=== PATIENT | female | born 1985 | race Caucasian/White ===

== ENCOUNTER → 2017-11-24 | Outpatient (CLI) | payer SELFPAY ==
--- NOTE | 2017-11-24 15:32 | RADIOLOGY REPORT (SQ) ---
EXAM DESCRIPTION: U/S OB TRANSVAGINAL W/O DOP COMPLETED DATE/TIME: 11/24/2017 2:56 pm REASON FOR STUDY: ENCTR FOR SUPERVISION OF OTHER NORMAL , FIRST TRIMESTER (Z34.81) Z34.81 ENCOUNTER FOR SUPRVSN OF NORMAL , FIRST TRIM COMPARISON: None. TECHNIQUE: Transabdominal static and realtime grayscale images acquired of the pelvis. Additional se lected spectral and color Doppler images recorded. All images stored on PACs. bHCG: Not applicable. CLINICAL DATES: 8 week 3 day. LIMITATIONS: None. FINDINGS: FETUS: Living intrauterine . ULTRASOUND EGA: 7 week 2 day. ULTRASOUND ELENA: 07/11/2018. CRL: 1.18 cm. FHR: 137 beats per minute. SUBCHORIONIC BLEED: No. SIZE OF BLEED: Not applicable. UTERUS: No masses. No anomalies. CERVICAL LENGTH: 1.7 cm. Closed. RIGHT ADNEXA: Normal ovary with normal vascular flow. No adnexal free fluid. No adnexal masses. LEFT ADNEXA: Normal ovary with normal vascular flow. No adnexal free fluid. No adnexal masses. FREE FLUID: None. OTHER: No other significant finding. IMPRESSION: LIVING INTRAUTERINE . EGA 7 WEEK 2 DAY. Trimester of : First - 0 to 13 weeks. TECHNICAL DOCUMENTATION: JOB ID: [id number] [employer]- All Rights Reserved Reading location - IP/workstation name: [email or web address]
== END ==
LOC: RAD 14:01
PROVIDERS: ATTEND Nurse Practitioner Women's Health
DX: Z34.81 Encounter for supervision of other normal pregnancy, first trimester (principal)
CPT/HCPCS: 76817

== ENCOUNTER 2018-04-22 15:46 | Emergency (ER) | payer MEDICAID ==
--- NOTE | 2018-04-22 16:23 | ER Document Report ---
ED Medical Screen (RME) - General Chief Complaint: Psych Problem Stated Complaint: PSYCH EVAL Time Seen by Provider: 04/22/18 16:21 Notes: Patient is 28 weeks and was at her local OB office today for a scheduled appointment when "she just lost it". She indicated to them that she was feeling depressed and they wrote her a prescription for Zoloft, but also told her to come here to be checked out. Patient says she feels like she "just cannot keep going". Patient has no previous history of mental health issues. No other significant medical problems. TRAVEL OUTSIDE OF THE [place] IN LAST 30 DAYS: No - Related Data Allergies/Adverse Reactions: No Known Allergies Allergy (Verified 04/22/18 15:56) Past Medical History - Social History Chew tobacco use (# tins/day): No Frequency of alcohol use: None Drug Abuse: None Renal/ Medical History: Denies: Hx Peritoneal Dialysis GI Medical History: Reports: Hx Hiatal Hernia Past Surgical History: Reports: Hx Breast Surgery - Cyst removal, Hx Gynecologic Surgery - D+C, Hx Herniorrhaphy - Umbilical hernia repair with mesh about 5 years ago. - Immunizations Hx Diphtheria, Pertussis, Tetanus Vaccination: No - >5 Physical Exam - Vital signs Vitals: Temp Pulse Resp BP Pulse Ox 98.3 F 90 16 111/59 L 98 04/22/18 16:09 04/22/18 16:09 04/22/18 16:09 04/22/18 16:09 04/22/18 16:09 Course - Vital Signs Vital signs: Temp Pulse Resp BP Pulse Ox 98.3 F 90 16 111/59 L 98 04/22/18 16:09 04/22/18 16:09 04/22/18 16:09 04/22/18 16:09 04/22/18 16:09 Doctor's Discharge - Discharge Referrals: RIVER TORRES NP [Primary Care Provider] - Follow up as needed
[2018-04-22 16:51] LABS: ABSOLUTE LYMPHOCYTES (AUTO) 1.8 10^3/uL (0.5-4.7); ABSOLUTE MONOCYTES (AUTO) 0.7 10^3/uL (0.1-1.4); ABSOLUTE NEUT (AUTO) 8.9 10^3/uL (1.7-8.2); BASOPHILS % (AUTO) 0.2 % (0-2); EOSINOPHILS % (AUTO) 0.3 % (0-6); HEMATOCRIT 34.4 % (36.0-47.0); LYMPHOCYTES % (AUTO) 15.5 % (13-45); MEAN CORPUSCULAR HEMOGLOBIN 32.4 pg (27.0-33.4); MEAN CORPUSCULAR VOLUME 93 fl (80-97); MONOCYTES % (AUTO) 6.2 % (3-13); PLATELET COUNT 315 10^3/uL (150-450); RED BLOOD COUNT 3.71 10^6/uL (3.72-5.28); RED CELL DISTRIBUTION WIDTH 13.2 % (11.5-14.0); SEGMENTED NEUTROPHILS % (AUTO) 77.8 % (42-78); TOTAL CELLS COUNTED % (AUTO) 100 %; WHITE BLOOD COUNT 11.5 10^3/uL (4.0-10.5)
[2018-04-22 17:03] LABS: APPEARANCE,URINE CLOUDY; BILIRUBIN,URINE NEGATIVE (NEGATIVE); COLOR,URINE YELLOW; GLUCOSE, URINE >=500 mg/dL (NEGATIVE); KETONES,URINE NEGATIVE (NEGATIVE); LEUKOCYTE ESTERASE,URINE NEGATIVE (NEGATIVE); NITRITE,URINE NEGATIVE (NEGATIVE); PROTEIN,URINE NEGATIVE (NEGATIVE); URINE SPECIFIC GRAVITY 1.016; UROBILINOGEN,URINE NEGATIVE mg/dL (<2.0)
[2018-04-22 17:12] LABS: URINE AMPHETAMINES SCREEN NEGATIVE; URINE BARBITURATES SCREEN NEGATIVE; URINE BENZODIAZEPINES SCREEN NEGATIVE; URINE COCAINE SCREEN NEGATIVE; URINE MARIJUANA (THC) SCREEN NEGATIVE; URINE METHADONE SCREEN NEGATIVE; URINE PHENCYCLIDINE SCREEN NEGATIVE
[2018-04-22 17:13] LABS: ALANINE AMINOTRANSFERASE 10 U/L (9-52); ALBUMIN 3.7 g/dL (3.5-5.0); ALKALINE PHOSPHATASE 72 U/L (38-126); ANION GAP 5 (5-19); ASPARTATE AMINO TRANSFERASE 14 U/L (14-36); BILIRUBIN,DIRECT 0.2 mg/dL (0.0-0.4); BILIRUBIN,TOTAL 0.3 mg/dL (0.2-1.3); BLOOD UREA NITROGEN 6 mg/dL (7-20); CALCIUM 9.8 mg/dL (8.4-10.2); CARBON DIOXIDE 27 mmol/L (22-30); CHLORIDE 106 mmol/L (98-107); GLUCOSE 80 mg/dL (75-110); POTASSIUM 4.1 mmol/L (3.6-5.0); SODIUM 137.7 mmol/L (137-145); TOTAL PROTEIN 6.5 g/dL (6.3-8.2)
[2018-04-22 17:15] LABS: ACETAMINOPHEN < 10 ug/mL (10-30); ALCOHOL < 10 mg/dL (NONE DETECTED); SALICYLATE < 1.0 mg/dL (2.0-20.0)
--- NOTE | 2018-04-22 18:05 | ER Document Report ---
ED General - General Chief Complaint: Psych Problem Stated Complaint: PSYCH EVAL Time Seen by Provider: 04/22/18 16:21 Mode of Arrival: Ambulatory Information source: Patient Notes: 32-year-old female who is 28 weeks presents from her [facility] after she expressed increasing depression, thoughts of suicide. Patient admits to increased stress with recently being evicted from her home and having no place to go with her 2 children and . Patient denies previous suicide attempts, previous depression. She states that "I am just tired". Patient was started on Zoloft today. TRAVEL OUTSIDE OF THE [place] IN LAST 30 DAYS: No - Related Data Allergies/Adverse Reactions: No Known Allergies Allergy (Verified 04/22/18 15:56) Past Medical History - General Information source: Patient - Social History Smoking Status: Current Every Day Smoker Cigarette use (# per day): Yes - 5 Chew tobacco use (# tins/day): No Smoking Education Provided: Yes - Smoking cessation counseling was provided for 4 minutes at the bedside Frequency of alcohol use: None Drug Abuse: None Lives with: Family Family History: Reviewed & Not Pertinent Patient has suicidal ideation: No Patient has homicidal ideation: No Renal/ Medical History: Denies: Hx Peritoneal Dialysis GI Medical History: Reports: Hx Hiatal Hernia Past Surgical History: Reports: Hx Breast Surgery - Cyst removal, Hx Gynecologic Surgery - D+C, Hx Herniorrhaphy - Umbilical hernia repair with mesh about 5 years ago. - Immunizations Hx Diphtheria, Pertussis, Tetanus Vaccination: No - >5 Hx Pneumococcal Vaccination: 04/26/00 Review of Systems - Review of Systems Notes: REVIEW OF SYSTEMS: CONSTITUTIONAL : Denies fever, chills, or sweats. Denies recent illness. Denies weight loss, recent hospitalizations. EENT: Denies visual changes, eye pain. Denies sore throat, oral lesions, difficulty swallowing. CARDIOVASCULAR: Denies chest pain. Denies palpitations. Denies lower extremity edema. RESPIRATORY: Denies cough. Denies shortness of breath, wheezing. GASTROINTESTINAL: Denies abdominal pain or distention. Denies nausea, vomiting, or diarrhea. Denies blood in vomitus, stools, or per rectum. Denies black, tarry stools. Denies constipation. GENITOURINARY: Denies difficulty urinating, painful urination, frequency, blood in urine, or vaginal discharge. MUSCULOSKELETAL: Denies back or neck pain or stiffness. Denies joint pain or swelling. SKIN: Denies rash, lesions or sores. HEMATOLOGIC : Denies easy bruising or bleeding. LYMPHATIC: Denies swollen glands. NEUROLOGICAL: Denies confusion or altered mental status. Denies loss of consciousness. Denies dizziness or lightheadedness. Denies headache. Denies weakness or paralysis. Denies problems difficulty with ambulation, slurred speech. Denies sensory loss, numbness, or tingling. Denies seizures. PSYCHIATRIC: Admits to increased stress, anxiety, thoughts of suicide. Physical Exam - Vital signs Vitals: Temp Pulse Resp BP Pulse Ox 98.3 F 90 16 111/59 L 98 04/22/18 16:09 04/22/18 16:09 04/22/18 16:09 04/22/18 16:09 04/22/18 16:09 - Notes Notes: PHYSICAL EXAMINATION: GENERAL: Well-appearing, well-nourished and in no acute distress. HEAD: Atraumatic, normocephalic. EYES: Pupils equal round and reactive to light, extraocular movements intact, conjunctiva are normal. ENT: Nares patent, oropharynx clear without exudates. Moist mucous membranes. NECK: Normal range of motion, supple without lymphadenopathy LUNGS: Breath sounds clear to auscultation bilaterally and equal. No wheezes rales or rhonchi. HEART: Regular rate and rhythm without murmurs ABDOMEN: Soft, nontender, nondistended abdomen. No guarding, no rebound. No masses appreciated. Female : deferred Musculoskeletal: Normal range of motion, no pitting or edema. No cyanosis. NEUROLOGICAL: Cranial nerves grossly intact. Normal speech, normal gait. Normal sensory, motor exams PSYCH: Admits to increased stress, depression and fleeting thoughts of suicide without plan. SKIN: Warm, Dry, normal turgor, no rashes or lesions noted. Course - Re-evaluation Re-evalutation: Temp Pulse Resp BP Pulse Ox 98.7 F 73 16 105/56 L 98 04/22/18 18:21 04/22/18 18:21 04/22/18 18:21 04/22/18 18:21 04/22/18 18:21 04/23/18 01:17 Patient was evaluated by psychiatry team. No further medication recommendations given. Patient provided information for resources regarding homeless shelters, food bank. is at the bedside and is very supportive. Patient educated on the fact that Zoloft may take to begin to take effect. She does not meet IVC criteria at this time. Patient discharged home in stable condition. - Vital Signs Vital signs: Temp Pulse Resp BP Pulse Ox 98.7 F 73 16 105/56 L 98 04/22/18 18:21 04/22/18 18:21 04/22/18 18:21 04/22/18 18:21 04/22/18 18:21 - Laboratory Result Diagrams: 04/22/18 16:36 04/22/18 16:36 Laboratory results interpreted by me: 04/22/18 04/22/18 04/22/18 16:32 16:36 16:36 WBC 11.5 H RBC 3.71 L Hct 34.4 L Absolute Neutrophils 8.9 H BUN 6 L Creatinine 0.36 L Urine Glucose (UA) >=500 H Salicylates < 1.0 L Acetaminophen < 10 L Discharge - Discharge Clinical Impression: Depression affecting in third trimester, antepartum Condition: Good Disposition: HOME, SELF-CARE Instructions: Depression ([facility]) Additional Instructions: Please continue the Zoloft that Dr. Valencia prescribed to you today. These medications can take a few weeks to start to help. Please return with any concerns. Forms: Smoking Cessation Education Referrals: RIVER TORRES NP [NO LOCAL MD] - Follow up as needed
[2018-04-22 18:22] VITALS: BP 105/56
== END 2018-04-22 18:22 | disposition home or self-care (01) ==
LOC: ER 15:46
DX: O26.893 Other specified pregnancy related conditions, third trimester (principal); R45.851 Suicidal ideations; O99.343 Other mental disorders complicating pregnancy, third trimester; F32.9 Major depressive disorder, single episode, unspecified; O99.333 Smoking (tobacco) complicating pregnancy, third trimester; Z3A.28 28 weeks gestation of pregnancy
CPT/HCPCS: 36415; 80053; 80307; 81001; 85025; 99284

== ENCOUNTER 2018-05-28 16:40 | Outpatient (CLI) | payer MEDICAID ==
[2018-05-28 17:20] LABS: APPEARANCE,URINE CLOUDY; BILIRUBIN,URINE NEGATIVE (NEGATIVE); CALCIUM OXALATE CRYSTALS,URINE MODERATE /HPF; GLUCOSE, URINE NEGATIVE (NEGATIVE); KETONES,URINE NEGATIVE (NEGATIVE); LEUKOCYTE ESTERASE,URINE NEGATIVE (NEGATIVE); NITRITE,URINE NEGATIVE (NEGATIVE); PROTEIN,URINE NEGATIVE (NEGATIVE); URINE SPECIFIC GRAVITY 1.025
[2018-05-28 17:21] LABS: COLOR,URINE YELLOW
[2018-05-28 17:27] LABS: URINE AMPHETAMINES SCREEN NEGATIVE; URINE BARBITURATES SCREEN NEGATIVE; URINE BENZODIAZEPINES SCREEN NEGATIVE; URINE MARIJUANA (THC) SCREEN NEGATIVE; URINE PHENCYCLIDINE SCREEN NEGATIVE
[2018-05-28 17:31] LABS: URINE COCAINE SCREEN NEGATIVE; URINE METHADONE SCREEN UNCONFIRMED POSITIVE
--- NOTE | 2018-05-28 18:03 | Non Stress Test Report ---
Non Stress Test Datetime Report Generated by CPN: 05/28/2018 18:03 DEMOGRAPHIC EGA NST: 33.5 INDICATION Indication for Study: Other Indication for Study (NST) Other: lump im abdomen MONITORING Monitor Explained: Monitor Explained; Test Explained; Patient Verbalized Understanding Time on Monitor: 05/28/2018 17:02 Time off Monitor: 05/28/2018 17:46 NST Duration: 44 NST INTERVENTIONS NST Interventions: Reposition Patient Physician Notified NST: Dr Nick BABY A: [id number] BABY A Movement : Present Contraction Frequency : 0 FHR Baseline : 125 Accelerations : 15X15 Decelerations : None Variability : Moderate 6-25bpm NST Review: Meets Criteria for Reactive NST NST Review and Verified By : J.Field RN NST Results: Reactive NST REPORT Report Trigger: Send Report
== END 2018-05-28 17:59 | disposition home or self-care (01) ==
LOC: LC 16:40
PROVIDERS: ATTEND Obstetrics & Gynecology
PROC: 4A1HXCZ Monitoring of Products of Conception, Cardiac Rate, External Approach (ICD-10-PCS; principal; 2018-05-28)
DX: O47.03 False labor before 37 completed weeks of gestation, third trimester (principal); Z3A.33 33 weeks gestation of pregnancy
CPT/HCPCS: 36415; 59025; 80307; 81001

== ENCOUNTER 2018-05-30 14:59 | Outpatient (CLI) | payer MEDICAID ==
--- NOTE | 2018-05-30 16:00 | Non Stress Test Report ---
Non Stress Test Datetime Report Generated by CPN: 05/30/2018 15:59 DEMOGRAPHIC EGA NST: 34.0 INDICATION Indication for Study: Ordered by Provider Indication for Study (NST) Other: non reactive NST MONITORING Monitor Explained: Monitor Explained; Test Explained; Patient Verbalized Understanding Time on Monitor: 05/30/2018 15:13 Time off Monitor: 05/30/2018 15:47 NST Duration: 34 NST INTERVENTIONS NST Interventions: PO Hydration; Meal Given Physician Notified NST: NVishal Lunsford, CNM BABY A: [id number] BABY A Movement : Present Contraction Frequency : 0 FHR Baseline : 120 Accelerations : 15X15 Decelerations : None Variability : Moderate 6-25bpm NST Review: Meets Criteria for Reactive NST NST Review and Verified By : NANETTE FORBES Results: Reactive NST REPORT Report Trigger: Send Report
== END 2018-05-30 15:49 | disposition home or self-care (01) ==
LOC: LC 14:59
PROVIDERS: ATTEND Obstetrics & Gynecology
PROC: 4A1HXCZ Monitoring of Products of Conception, Cardiac Rate, External Approach (ICD-10-PCS; principal; 2018-05-30)
DX: O99.333 Smoking (tobacco) complicating pregnancy, third trimester (principal); F17.210 Nicotine dependence, cigarettes, uncomplicated; Z3A.34 34 weeks gestation of pregnancy
CPT/HCPCS: 59025

== ENCOUNTER 2018-07-03 01:07 | Inpatient (IN) | payer MEDICAID ==
[2018-07-03] MEDS ORDERED: RINGERS SOLUTION,LACTATED 1,000 ML IV PRN (01:53)
[2018-07-03] MEDS ORDERED: OXYTOCIN/NORMAL SALINE 20 UNIT/1,000 ML RTUINJ IV PRN (01:59)
[2018-07-03 03:23] LABS: ABSOLUTE BASOPHILS # (AUTO) 0.1 10^3/uL (0.0-0.2); ABSOLUTE EOSINOPHILS # (AUTO) 0.1 10^3/uL (0.0-0.6); ABSOLUTE LYMPHOCYTES (AUTO) 2.5 10^3/uL (0.5-4.7); ABSOLUTE MONOCYTES (AUTO) 0.9 10^3/uL (0.1-1.4); ABSOLUTE NEUT (AUTO) 9.6 10^3/uL (1.7-8.2); BASOPHILS % (AUTO) 0.9 % (0-2); EOSINOPHILS % (AUTO) 0.5 % (0-6); HEMATOCRIT 33.2 % (36.0-47.0); HEMOGLOBIN 11.8 g/dL (12.0-15.5); MEAN CORPUSCULAR HEMOGLOBIN 32.3 pg (27.0-33.4); MEAN CORPUSCULAR HGB CONC 35.4 g/dL (32.0-36.0); MEAN CORPUSCULAR VOLUME 91 fl (80-97); MONOCYTES % (AUTO) 7.1 % (3-13); PLATELET COUNT 314 10^3/uL (150-450); RED BLOOD COUNT 3.64 10^6/uL (3.72-5.28); RED CELL DISTRIBUTION WIDTH 13.6 % (11.5-14.0); SEGMENTED NEUTROPHILS % (AUTO) 72.5 % (42-78); TOTAL CELLS COUNTED % (AUTO) 100 %; WHITE BLOOD COUNT 13.2 10^3/uL (4.0-10.5)
[2018-07-03] MEDS ORDERED: OXYTOCIN/NORMAL SALINE 20 UNIT/1,000 ML RTUINJ ONE (03:33)
[2018-07-03] MEDS ORDERED: LIDOCAINE 1% INJ-PF (10 MG/ML) 30 ML SDV ONE (03:34)
[2018-07-03] MEDS ORDERED: MISOPROSTOL 0.2 MG TABLET ONE (03:34)
[2018-07-03 04:02] LABS: APPEARANCE,URINE CLOUDY; BILIRUBIN,URINE NEGATIVE (NEGATIVE); COLOR,URINE YELLOW; GLUCOSE, URINE NEGATIVE (NEGATIVE); KETONES,URINE NEGATIVE (NEGATIVE); LEUKOCYTE ESTERASE,URINE NEGATIVE (NEGATIVE); NITRITE,URINE NEGATIVE (NEGATIVE); PROTEIN,URINE NEGATIVE (NEGATIVE); URINE SPECIFIC GRAVITY 1.026
[2018-07-03 04:17] LABS: URINE AMPHETAMINES SCREEN NEGATIVE; URINE BARBITURATES SCREEN NEGATIVE; URINE BENZODIAZEPINES SCREEN NEGATIVE; URINE COCAINE SCREEN NEGATIVE; URINE MARIJUANA (THC) SCREEN NEGATIVE; URINE METHADONE SCREEN NEGATIVE; URINE PHENCYCLIDINE SCREEN NEGATIVE
[2018-07-03] MEDS ORDERED: BUPIVACAINE HCL 0.25 % INJ/PF (2.5 MG/1 ML) 30 ML VIAL ONE (05:22)
[2018-07-03] MEDS ORDERED: EPHEDRINE SULFATE INJ 50 MG/1 ML AMPULE ONE ×2 (05:22→05:28)
[2018-07-03] MEDS ORDERED: FENTANYL/BUPIVACAINE/NS/PF 300 MCG/150 ML RTUINJ EPI ONE (05:22)
[2018-07-03] MEDS ORDERED: FENTANYL CITRATE INJ/PF 100 MCG/2 ML AMPUL ONE (05:22)
[2018-07-03] MEDS ORDERED: LIDOCAINE 2%/EPINEPHRINE INJ 20 ML VIAL ONE (05:23)
[2018-07-03] MEDS ORDERED: MEASLES,MUMPS&RUBELLA VACC/PF 0.5 ML VIAL SUBCUT PRN (07:17)
[2018-07-03] MEDS ORDERED: BENZOCAINE/MENTHOL AEROSOL SPRAY 56 ML TOP PRN (07:17)
[2018-07-03] MEDS ORDERED: DIBUCAINE 1% OINTMENT 56 GM TP PRN (07:17)
[2018-07-03] MEDS ORDERED: ACETAMINOPHEN WITH CODEINE #3 TABLET PO PRN (07:17)
[2018-07-03] MEDS ORDERED: DIPH/PERTUSS(ACELL)/TETANUS VAC/PF 0.5 ML SYR (>=10YO) IM PRN (07:17)
[2018-07-03] MEDS ORDERED: ACETAMINOPHEN WITH CODEINE #3 TABLET ONE (07:25)
[2018-07-03] MEDS ORDERED: IBUPROFEN 800 MG TABLET ONE (07:26)
[2018-07-03] MEDS: ACETAMINOPHEN WITH CODEINE #3 TABLET PO PRN ×2 (07:31→22:15)
--- NOTE | 2018-07-03 10:01 | Delivery Summary ---
Del Sum A-C Datetime Report Generated by CPN: 07/03/2018 10:01 DELIVERY PERSONNEL DELIVERY PERSONNEL: [id number] Delivery Doctor:: Unique Corley DO Labor and Delivery Nurse:: Nicole Hernandez RN Nursery Nurse:: isidro dejesus RN Computer Support Specialist Instructor/SUMMER LAW CLERK: Tamara Bustillos, ADULT EDUCATION MANAGER MATERNAL INFORMATION Delivery Anesthesia: Epidural Medications After Delivery: Pitocin Drip 20 Units/1000ml NSS Estimated Blood Loss (ml): 100 Maternal Complications: None Provider Comments: placenta w/calcifications, verified intact. uterine sweep performed. (Annotations: Data stored by [facility] on behalf of user) LABOR SUMMARY EDC: 07/11/2018 00:00 No. Babies in Womb: 1 Attempted: No Labor Anesthesia: Epidural LABOR INFORMATION Reason for Induction: Not Applicable Onset of Labor: 07/03/2018 01:37 Complete Dilatation: 07/03/2018 06:12 Oxytocin: Augmentation (Annotations: Data stored by [facility] on behalf of user) Group B Beta Strep: neg Antibiotics # of Doses: 0 Antibiotics Time of Last Dose: n/a Name of Antibiotic Given: n/a Steroids Given: None Reason Steroids Not Administered: Not Applicable MEMBRANES Membranes Rupture Method: Spontaneous Rupture of Membranes: 07/03/2018 00:00 Length of Rupture (hr): 5.32 Amniotic Fluid Color: Clear Amniotic Fluid Amount: Small Amniotic Fluid Odor: Normal STAGES OF LABOR Stage 1 hr: 3 Stage 1 min: 35 Stage 2 hr: 0 Stage 2 min: 7 Stage 3 hr: 0 Stage 3 min: 4 Total Time in Labor hr: 3 Total Time in Labor min: 46 VAGINAL DELIVERY Episiotomy: None Laceration #1: None Laceration Extension #1: N/A Laceration Repair: Not Applicable CSECTION DELIVERY Primary Indication: N/A (Annotations: Data stored by [facility] on behalf of user) Secondary Indication: N/A CSection Incidence: N/A Labor: N/A Elective: N/A BABY A INFORMATION Delivery Date/Time: 07/03/2018 06:19 Method of Delivery: Vaginal Born in Route : No : N/A Forceps: N/A Vacuum Extraction: N/A Shoulder Dystocia : No PRESENTATION/POSITION BABY A Presentation: Cephalic Cephalic Presentation: Vertex Vertex Position: Right Occipital Anterior Breech Presentation: N/A PLACENTA INFORMATION BABY A Placenta Delivery Time : 07/03/2018 06:23 Placenta Method of Delivery: Spontaneous Placenta Status: Delivered SCORES BABY A Heart Rate 1 min: >100 bpm Resp Effort 1 min: Slow, Irregular Reflex Irritability 1 min: Cough or Sneeze or Pulls Away Muscle Tone 1 min: Active Motion Color 1 min: Blue/Pale SCORE 1 MIN: 7 Heart Rate 5 min: >100 bpm Resp Effort 5 min: Good Cry Reflex Irritability 5 min: Cough or Sneeze or Pulls Away Muscle Tone 5 min: Active Motion Color 5 min: Blue/Pale SCORE 5 MIN: 8 INFORMATION BABY A Gestational Age at Delivery: 38.6 Gestational Status: Early Term- 37- 38.6 Weeks Outcome : Liveborn Infant Condition : Stable Sex: Male IDENTIFICATION BABY A Infant Verification Date/Time: 07/03/2018 06:25 ID Band Number: [id number] Mother's Name Verified: Yes Infant RN Verifying Infant: Marlen RN Additional Verifying Personnel: [facility] WEIGHT/LENGTH BABY A Infant Birthweight (gm): 3019 Weight (lb): 6 Weight (oz): 10 Length (in): 20.00 Length (cm): 50.80 CORD INFORMATION BABY A No. Cord Vessels: 3 Nuchal Cord : N/A Cord Blood Taken: Yes-For Eval (Mom's Blood Type - or O+) ASSESSMENT BABY A Infant Complications: None Physical Findings at Delivery: Within Normal Limits Respirations: Appears Normal Skin to Skin: No Skin to Skin Time (min): 35 Broom Worker/ALS Called : No Care By: Mary Dejesus RN Transferred To: Remains with Mother
--- NOTE | 2018-07-03 10:34 | Warning Signs in Babies ---
VOD Warning Signs Datetime Report Generated by [facility]: 07/03/2018 10:34 VOD#[id number] -Warning Signs in Babies: Viewed with Parent(s)/Family (05/28/2018 16:42:Debra Nina RN)
[2018-07-03] MEDS: DOCUSATE SODIUM 100 MG CAPSULE PO SCH ×2 (11:37→18:47)
[2018-07-03] MEDS: SENNOSIDES/DOCUSATE 8.6-50 MG 1 EACH TABLET PO SCH (11:37)
[2018-07-03] MEDS: PRENATAL VITAMIN W DHA CAPSULE PO SCH (11:37)
[2018-07-03] MEDS: FERROUS SULFATE 325 MG TABLET PO SCH ×2 (11:38→18:47)
[2018-07-03] MEDS: IBUPROFEN 800 MG TABLET PO SCH ×2 (14:24→22:15)
[2018-07-03] MEDS: SERTRALINE HCL 50 MG TABLET PO SCH (18:47)
[2018-07-03] MEDS: ZOLPIDEM TARTRATE 5 MG TABLET PO PRN (23:22)
[2018-07-04] MEDS: IBUPROFEN 800 MG TABLET PO SCH ×3 (05:47→21:37)
[2018-07-04] MEDS: ACETAMINOPHEN WITH CODEINE #3 TABLET PO PRN ×4 (05:47→21:38)
[2018-07-04 08:22] LABS: HEMOGLOBIN 11.2 g/dL (12.0-15.5); MEAN CORPUSCULAR HEMOGLOBIN 32.4 pg (27.0-33.4); MEAN CORPUSCULAR VOLUME 93 fl (80-97); PLATELET COUNT 291 10^3/uL (150-450); RED BLOOD COUNT 3.46 10^6/uL (3.72-5.28); RED CELL DISTRIBUTION WIDTH 13.7 % (11.5-14.0); WHITE BLOOD COUNT 12.9 10^3/uL (4.0-10.5)
[2018-07-04] MEDS: SENNOSIDES/DOCUSATE 8.6-50 MG 1 EACH TABLET PO SCH (09:27)
[2018-07-04] MEDS: PRENATAL VITAMIN W DHA CAPSULE PO SCH (09:27)
[2018-07-04] MEDS: FERROUS SULFATE 325 MG TABLET PO SCH ×2 (09:27→17:12)
[2018-07-04] MEDS: DOCUSATE SODIUM 100 MG CAPSULE PO SCH ×2 (09:27→18:59)
--- NOTE | 2018-07-04 10:57 | PDOC PROGRESS REPORT ---
Subjective-OB Progress Note for:: 07/04/18 Subjective: Pt doing well. No concerns. She reports light bleeding, regular diet, voiding without difficulty. Physical Exam (OB) Vital Signs: Temp Pulse Resp BP Pulse Ox 97.3 F 66 18 121/76 99 07/04/18 10:31 07/04/18 10:31 07/04/18 10:31 07/04/18 10:31 07/04/18 10:31 Intake & Output 07/03/18 07/04/18 07/05/18 06:59 06:59 06:59 Intake Total 300 Balance 300 Weight - Lochia Lochia Amount: Scant < 10 ml Lochia Color: Rubra/Red - Abdomen Description: Soft Hernia Present: No Fundal Description: Firm, Midline Fundal Height: u/u - u/2 Objective-Diagnostic Laboratory: 07/04/18 08:07 07/04/18 07/04/18 08:07 08:07 WBC 12.9 H RBC 3.46 L Hgb 11.2 L Hct 32.0 L MCV 93 MCH 32.4 MCHC 35.0 RDW 13.7 Plt Count 291 Blood Type O NEGATIVE Assessment and Plan(PN) - Assessment and Plan (1) Vaginal delivery Is this a current diagnosis for this admission?: Yes - Time Spent with Patient Time with patient: Less than 15 minutes Medications reviewed and adjusted accordingly: Yes - Disposition Anticipated Discharge: Home Within: within 24 hours
[2018-07-04] MEDS: SERTRALINE HCL 50 MG TABLET PO SCH (15:52)
[2018-07-04] MEDS: ZOLPIDEM TARTRATE 5 MG TABLET PO PRN (23:45)
[2018-07-05] MEDS: ACETAMINOPHEN WITH CODEINE #3 TABLET PO PRN ×3 (02:40→13:11)
[2018-07-05] MEDS: IBUPROFEN 800 MG TABLET PO SCH ×2 (06:15→13:10)
[2018-07-05] MEDS: DOCUSATE SODIUM 100 MG CAPSULE PO SCH (09:05)
[2018-07-05] MEDS: PRENATAL VITAMIN W DHA CAPSULE PO SCH (09:06)
[2018-07-05] MEDS: FERROUS SULFATE 325 MG TABLET PO SCH (09:06)
[2018-07-05] MEDS: SENNOSIDES/DOCUSATE 8.6-50 MG 1 EACH TABLET PO SCH (09:06)
[2018-07-05 09:11] VITALS: BP 98/56
--- NOTE | 2018-07-05 09:52 | PDOC DISCHARGE SUMMARY ---
Final Diagnosis Discharge Date: 07/05/18 - Final Diagnosis (1) Hernia of abdominal wall Is this a current diagnosis for this admission?: Yes (2) Positive urine drug screen Is this a current diagnosis for this admission?: Yes (3) Vaginal delivery Is this a current diagnosis for this admission?: Yes Discharge Data - Discharge Medication Prescriptions: Ibuprofen [Motrin 800 mg Tablet] 800 mg PO Q8HP PRN #60 tablet PRN Reason: Pnv,Calcium 72/Iron/Folic Acid [Pnv Plus Multivit Tab] 1 tab PO DAILY #90 tablet Sertraline HCl [Zoloft 50 mg Tablet] 100 mg PO DAILY #30 tablet Home Medications: Vit D3/Folic Acid/B2/B6/B12 [Folgard Tablet] 1 each PO DAILY 07/03/18 Ibuprofen [Motrin 800 mg Tablet] 800 mg PO Q8HP PRN #60 tablet 07/05/18 Pnv,Calcium 72/Iron/Folic Acid [Pnv Plus Multivit Tab] 1 tab PO DAILY #90 tablet 07/05/18 Sertraline HCl [Zoloft 50 mg Tablet] 100 mg PO DAILY #30 tablet 07/05/18 Procedures: NST Intrapartum Procedure(s): Spontaneous Vaginal Delivery - Diagnosis Test Laboratory: Temp Pulse Resp BP Pulse Ox 97.9 F 66 20 98/56 L 97 07/05/18 07:34 07/05/18 07:34 07/05/18 07:34 07/05/18 07:34 07/05/18 07:34 07/03/18 07/03/18 07/04/18 01:15 03:09 08:07 RBC 3.64 L 3.46 L Hgb 11.8 L 11.2 L Hct 33.2 L 32.0 L Urine Opiates Screen UNCONFIRMED POSITIVE - Discharge information/Instructions Discharge Activity: Balance Activity w/Rest, Pelvic Rest Discharge Diet: Regular Disposition: HOME, SELF-CARE Follow up with: [facility] in: 4, Weeks
[2018-07-05] MEDS: SERTRALINE HCL 50 MG TABLET PO SCH (13:11)
--- NOTE | 2018-07-24 17:27 | PDOC H&P ---
History of Present Illness Admission Date/PCP: 07/03/18 01:52 SJ CONTRERAS MD Patient complains of: SROM History of Present Illness: HERLINDA SALAZAR is a 32 year old female Past Medical History Medical History: None GI Medical History: Reports: Hiatal Hernia Past Surgical History Past Surgical History: Reports: Herniorrhaphy - Umbilical hernia repair with mesh about 5 years ago. Social History Smoking Status: Current Every Day Smoker Family History Family History: None, Reviewed & Not Pertinent Parental Family History Reviewed: No Children Family History Reviewed: No Sibling(s) Family History Reviewed.: No Medication/Allergy Home Medications: Vit D3/Folic Acid/B2/B6/B12 [Folgard Tablet] 1 each PO DAILY 07/03/18 Ibuprofen [Motrin 800 mg Tablet] 800 mg PO Q8HP PRN #60 tablet 07/05/18 Pnv,Calcium 72/Iron/Folic Acid [Pnv Plus Multivit Tab] 1 tab PO DAILY #90 tablet 07/05/18 Sertraline HCl [Zoloft 50 mg Tablet] 100 mg PO DAILY #30 tablet 07/05/18 Allergies/Adverse Reactions: No Known Allergies Allergy (Verified 07/03/18 04:25) Physical Exam - Physical Exam Vital Signs: Temp Pulse Resp BP Pulse Ox 97.9 F 66 20 98/56 L 97 07/05/18 11:48 07/05/18 11:48 07/05/18 11:48 07/05/18 11:48 07/05/18 11:48 - Obstetrical Exam External Genitalia: normal - +amniotic fluid Vagina: normal Dilation (cm): 2 Effacement (%): 50 Station: -2 Tender: No Result Laboratory Results: 07/04/18 08:07 Assessment & Plan - Diagnosis (1) SROM (spontaneous rupture of membranes) Is this a current diagnosis for this admission?: Yes Plan: Admit for labor (2) Term Plan: Admit, anticipate
== END 2018-07-05 14:17 | disposition home or self-care (01) | DRG 807 ==
LOC: LC 01:07 → LR 01:52 → 2S 10:25
PROVIDERS: ADMIT Obstetrics & Gynecology; ATTEND Obstetrics & Gynecology
PROC: 10E0XZZ Delivery of Products of Conception, External Approach (ICD-10-PCS; principal; 2018-07-03)
PROC: 3E0234Z Introduction of Serum, Toxoid and Vaccine into Muscle, Percutaneous Approach (ICD-10-PCS; 2018-07-05)
DX: O36.0930 Maternal care for other rhesus isoimmunization, third trimester, not applicable or unspecified (principal); Z37.0 Single live birth; O24.425 Gestational diabetes mellitus in childbirth, controlled by oral hypoglycemic drugs; O99.334 Smoking (tobacco) complicating childbirth; F17.210 Nicotine dependence, cigarettes, uncomplicated; O99.344 Other mental disorders complicating childbirth; F32.9 Major depressive disorder, single episode, unspecified; Z3A.38 38 weeks gestation of pregnancy
CPT/HCPCS: 36415; 80307; 80361; 81005; 85025; 85027; 85461; 86592; 86850; 86900; 86901; 94760; J2590; J2790; J3010; J3490

== ENCOUNTER 2019-05-01 17:30 | Emergency (ER) | payer SELFPAY ==
[2019-05-01] MEDS ORDERED: DEXAMETHASONE SOD PHOS INJ 10 MG/1 ML VIAL IM ONE (18:27)
[2019-05-01] MEDS ORDERED: KETOROLAC TROMETHAMINE 60 MG/2 ML SDV IM ONE (18:27)
--- NOTE | 2019-05-01 18:33 | ER Document Report ---
HPI - HPI Time Seen by Provider: 05/01/19 18:19 Pain Level: 4 Context: Patient is a 33-year-old female who presents to the emergency department with a chief complaint of sore throat. Patient reports she developed a sore throat about 5 days ago. Patient reports over the past 48 hours she has had had mouth pain all over and sores to the tongue and top of her mouth. Patient reports she feels like a big ache around her mouth. Patient denies difficulty swallowing. Patient reports she is used Orajel without relief. Patient reports she is also use Tylenol and ibuprofen. Last dose of pain medication was around 1 PM. - REPRODUCTIVE Reproductive: DENIES: : Past Medical History - General Information source: Patient - Social History Smoking Status: Current Every Day Smoker Frequency of alcohol use: None Drug Abuse: None Lives with: Family Family History: None, Reviewed & Not Pertinent Patient has suicidal ideation: No Patient has homicidal ideation: No - Past Medical History Cardiac Medical History: Reports: None Pulmonary Medical History: Reports: None EENT Medical History: Reports: None Neurological Medical History: Reports: None Endocrine Medical History: Reports: None Renal/ Medical History: Reports: None. Denies: Hx Peritoneal Dialysis Malignancy Medical History: Reports: None GI Medical History: Reports: Hx Hiatal Hernia Musculoskeletal Medical History: Reports None Skin Medical History: Reports None Psychiatric Medical History: Reports: None Traumatic Medical History: Reports: None Infectious Medical History: Reports: None Past Surgical History: Reports: Hx Breast Surgery - Cyst removal, Hx Gynecologic Surgery - D+C, Hx Herniorrhaphy - Umbilical hernia repair with mesh about 5 years ago. - Immunizations Hx Diphtheria, Pertussis, Tetanus Vaccination: No - >5 Hx Pneumococcal Vaccination: 04/26/00 Vertical Provider Document - CONSTITUTIONAL Agree With Documented VS: Yes Exam Limitations: No Limitations General Appearance: No Apparent Distress - INFECTION CONTROL TRAVEL OUTSIDE OF THE [place] IN LAST 30 DAYS: No - HEENT HEENT: Atraumatic, Normal ENT Exam, Normocephalic, PERRLA Notes: Throat is slightly erythematous without edema. Patient does have an ulcer to the top of the left soft palate and to the tip of her tongue. There are no lesions on the lips. No other open wounds. Patient does have poor dentition but there is not appear to be a dental infection. No palpable abscess. Uvula is midline. - NECK Neck: Normal Inspection Notes: Tenderness noted to the anterior cervical chain with mild lymphadenopathy. - RESPIRATORY Respiratory: Breath Sounds Normal - CARDIOVASCULAR Cardiovascular: Regular Rate, Regular Rhythm - GI/ABDOMEN Gastrointestinal: Abdomen Soft, Abdomen Non-Tender, Normal Bowel Sounds - MUSCULOSKELETAL/EXTREMETIES Musculoskeletal/Extremeties: FROM - NEURO Level of Consciousness: Awake, Alert, Appropriate - DERM Integumentary: Warm, Dry, No Rash Course - Re-evaluation Re-evalutation: 05/01/19 20:48 Patient's has symptoms consistent with canker sores. I will prescribe her the Magic mouthwash to treat the symptoms. I did inform her this can last up to 7 to 14 days. I did inform her the Magic mouthwash does not cure this but simply helps with her symptoms. I did inform her to keep alternating Tylenol and ibuprofen for pain. Patient to avoid spicy, acidic, alcohol or irritating foods. Patient reports it extremely painful to eat as it irritates the ulcers. I did inform her to stick to a clear liquid and soft diet over the next few days. I did provide the patient with antiviral medication to use as needed. I did inform her that if she were to develop multiple double ulcerations within her mouth that this could be a herpetic stomatitis. I did inform her that if it was this that she could be extremely contagious and not to eat or drink after anybody. Patient verbalized understanding. - Vital Signs Vital signs: Temp Pulse Resp BP Pulse Ox 98.5 F 76 16 131/74 H 98 05/01/19 18:08 05/01/19 18:08 05/01/19 18:08 05/01/19 18:08 05/01/19 18:08 Discharge - Discharge Clinical Impression: Sore throat (viral), Canker sores oral Condition: Stable Disposition: HOME, SELF-CARE Additional Instructions: *Today you are seen in the emergency department for sore throat. Your strep test was negative. It does appear that you have canker sores. This can be very painful. I am giving you a prescription for Magic mouthwash. Take this as prescribed. You can swish and swallow. This helps with symptoms. Typically canker sores will heal over the next 2 weeks. Please avoid spicy, acidic foods. Please refrain from smoking. Prescriptions: Acyclovir [Acyclovir 400 mg Tablet] 400 mg PO ASDIR #25 tablet Nystatin/Dexameth/Diphen [Magic Mouthwash ([facility] Formula) Susp] 5 ml PO QID #120 ml Forms: Return to Work Referrals: SJ CONTRERAS MD [ACTIVE STAFF] - Follow up as needed
[2019-05-01 20:31] VITALS: BP 114/67
== END 2019-05-01 20:44 | disposition home or self-care (01) ==
LOC: ER 17:30
DX: K12.0 Recurrent oral aphthae (principal); J02.8 Acute pharyngitis due to other specified organisms; B97.89 Other viral agents as the cause of diseases classified elsewhere; F17.200 Nicotine dependence, unspecified, uncomplicated
CPT/HCPCS: 99283; 96372; 87070; 87880; 87077; J1885; J1100

== ENCOUNTER 2019-10-05 15:47 | Emergency (ER) | payer SELFPAY ==
[2019-10-05 16:07] VITALS: BP 134/79
[2019-10-05] MEDS ORDERED: PENICILLIN V POTASSIUM 500 MG TABLET PO ONE (16:22)
[2019-10-05] MEDS ORDERED: LIDOCAINE 2% VISCOUS SOLN 15 ML UDCUP PO ONE (16:22)
--- NOTE | 2019-10-05 16:28 | ER Document Report ---
ED Oral Problem - General Chief Complaint: Toothache Stated Complaint: TOOTHACHE Time Seen by Provider: 10/05/19 16:17 Primary Care Provider: DENTISTRY [Provider Group] - Follow up as needed Mode of Arrival: Ambulatory Information source: Patient Notes: 34-year-old female presents to ED for complaint of dental pain to tooth #32 for the last 2 weeks. She states she been using mouthwash and oral gel. States she does not have any money to go to a dentist. She states she is also had a sore throat with swelling to the right anterior cervical chain. Patient smokes pack a day does not drink or does not use any illicit drugs. She says she has no insurance so she cannot go to the dentist. I have informed patient that we can treated with antibiotics and viscous lidocaine but that she will need to go to the dentist to get definitive treatment to this tooth. TRAVEL OUTSIDE OF THE [place] IN LAST 30 DAYS: No - HPI Patient complains to provider of: Sore throat, Toothache Onset: Other - 2 weeks Onset: Gradual Quality of pain: Sharp Severity: Severe Pain Level: 5 Sore throat: Mild Associated symptoms: Toothache, Other - Sore throat Worsened by: Cold Relieved by: Nothing Similar symptoms previously: Yes Recently seen / treated by doctor/dentist: No - Related Data Allergies/Adverse Reactions: No Known Allergies Allergy (Verified 07/03/18 04:25) Past Medical History - General Information source: Patient - Social History Smoking Status: Current Every Day Smoker Cigarette use (# per day): Yes - Pack per day Smoking Education Provided: Yes - 4 minutes Frequency of alcohol use: None Drug Abuse: None Family History: None, Reviewed & Not Pertinent Patient has homicidal ideation: No - Past Medical History Cardiac Medical History: Reports: None Pulmonary Medical History: Reports: None EENT Medical History: Reports: None Neurological Medical History: Reports: None Endocrine Medical History: Reports: None Renal/ Medical History: Reports: None Malignancy Medical History: Reports: None GI Medical History: Reports: Hx Hiatal Hernia Musculoskeletal Medical History: Reports None Skin Medical History: Reports None Psychiatric Medical History: Reports: None Traumatic Medical History: Reports: None Infectious Medical History: Reports: None Past Surgical History: Reports: Hx Breast Surgery - Cyst removal, Hx Gynecologic Surgery - D+C, Hx Herniorrhaphy - Umbilical hernia repair with mesh about 5 years ago. - Immunizations Hx Diphtheria, Pertussis, Tetanus Vaccination: No - >5 Hx Pneumococcal Vaccination: 04/26/00 Review of Systems - Review of Systems Constitutional: No symptoms reported EENT: Throat pain, Mouth pain, Dental problem Cardiovascular: No symptoms reported Respiratory: No symptoms reported Gastrointestinal: No symptoms reported Genitourinary: No symptoms reported Female Genitourinary: No symptoms reported Musculoskeletal: No symptoms reported Skin: No symptoms reported Hematologic/Lymphatic: No symptoms reported Neurological/Psychological: No symptoms reported Physical Exam - Vital signs Vitals: Temp Pulse Resp BP Pulse Ox 98.2 F 62 16 134/79 H 99 10/05/19 16:02 10/05/19 16:02 10/05/19 16:02 10/05/19 16:02 10/05/19 16:02 Interpretation: Normal - General General appearance: Appears well, Alert - HEENT Head: Normocephalic, Atraumatic Eyes: Normal Pupils: PERRL Ears: Normal External canal: Normal Tympanic membrane: Normal Sinus: Normal Nasal: Normal Mouth/Lips: Caries Mucous membranes: Normal Teeth diagram: 1 - Redness around the tooth with a cavity with a part of the tooth missing Pharynx: Erythema. No: Exudate, Peritonsillar abscess, Post nasal drainage, Retropharyngeal abscess, Tonsillar hypertrophy, Uvular edema, Potential airway comprom. Neck: Normal - Respiratory Respiratory status: No respiratory distress Chest status: Nontender Breath sounds: Normal Chest palpation: Normal - Cardiovascular Rhythm: Regular Heart sounds: Normal auscultation Murmur: No - Abdominal Inspection: Normal Distension: No distension Bowel sounds: Normal Tenderness: Nontender Organomegaly: No organomegaly - Back Back: Normal, Nontender - Extremities General upper extremity: Normal inspection, Nontender, Normal color, Normal ROM, Normal temperature General lower extremity: Normal inspection, Nontender, Normal color, Normal ROM, Normal temperature, Normal weight bearing. No: Gus's sign - Neurological Neuro grossly intact: Yes Cognition: Normal Orientation: AAOx4 Stella Coma Scale Eye Opening: Spontaneous Sarmad Coma Scale Verbal: Oriented Sarmad Coma Scale Motor: Obeys Commands Sarmad Coma Scale Total: 15 Speech: Normal Motor strength normal: LUE, RUE, LLE, RLE Sensory: Normal - Psychological Associated symptoms: Normal affect, Normal mood - Skin Skin Temperature: Warm Skin Moisture: Dry Skin Color: Normal Course - Re-evaluation Re-evalutation: 10/05/19 16:30 She was seen for dental pain with redness around the tooth #32. She also complained of sore throat. I did send a strep culture but she will be treated with penicillin VK for the dental pain. Patient was also given a syringe of viscous lidocaine. She was instructed to use this every 4 hours as needed for pain. She was instructed not to use it any more often than every 4 hours or daily with the skin on her gums. Patient verbalized understanding and agreement with this treatment plan. Patient was also instructed to use Tylenol or Motrin and follow-up with a dentist as soon as possible - Vital Signs Vital signs: Temp Pulse Resp BP Pulse Ox 98.2 F 62 16 134/79 H 99 10/05/19 16:18 10/05/19 16:02 10/05/19 16:02 10/05/19 16:02 10/05/19 16:02 Discharge - Discharge Clinical Impression: Pain due to dental caries, Sore throat Condition: Stable Disposition: HOME, SELF-CARE Additional Instructions: TOOTHACHE: Your pain is due to dental decay. The tooth must be repaired in order for you to feel better. You will, therefore, be referred to a dentist. We do not have dentists on the staff at [facility]. Severe swelling or drainage around a tooth usually means a dental abscess. This also requires evaluation and treatment by the dentist, but antibiotics may be prescribed while awaiting dental treatment. You should be rechecked immediately if you develop major swelling of the face, increasing pain, a lump in the jaw or gums, headache, difficulty swallowing, or fever. PENICILLIN V K: You have been given a prescription for Penicillin VK. Your physician has determined that this is the best antibiotic for your condition. Pen VK can be taken with meals, however more of the antibiotic gets into the bloodstream if it's taken on an empty stomach. Penicillin usually has no side effects. However, allergy to penicillins is common. If you have had an allergic reaction to any drug of the penicillin family, you should never take any other penicillin. Notify your doctor at once if you develop hives, itching, swelling, faintness, or shortness of breath. FOLLOW-UP CARE: You have been referred for follow-up care to the dentists listed below. Call the dentists office for an appointment as you were instructed or within the next two days. If you experience worsening or a significant change in your symptoms, notify the physician immediately or return to the Emergency Department at any time for re-evaluation. [facility] [address] [place] [address] [facility] [place] [address] [facility] [address] [facility] ([facility]) [facility] [address] [email or web address] [address] [place] [address] Wednesday- 8:00am to 5:00 pm Will see patients from other [facility]. Charges based on income and family size and accepts Medicare, Medicaid, and Insurances Will pull molars [facility] [id number] Hours of Operation 8:00 am - 4:30 pm weekdays The following dental offices accept Medicaid: [facility] Dr. T[address] Dr. Adorno Dr. Paiz Dr. Metz Rolly Truong Lutsavage, and [facility] Dr. Newton ([place]) Dr. Ashby ([place]) [facility] Drs. Prajapati and Krystian ([place]) Dr. Onofre ([place]) [facility] Dr. Resendez ([place]) Drs. Torres and ([place]) Medicaid Care Line Prescriptions: Penicillin V Potassium [Penicillin Vk 500 mg Tablet] 500 mg PO BID #20 tablet Forms: Elevated Blood Pressure, Smoking Cessation Education Referrals: DENTISTRY [Provider Group] - Follow up as needed
== END 2019-10-05 16:36 | disposition home or self-care (01) ==
LOC: ER 15:47
DX: K02.9 Dental caries, unspecified (principal); K08.89 Other specified disorders of teeth and supporting structures; J02.9 Acute pharyngitis, unspecified; R22.0 Localized swelling, mass and lump, head; F17.210 Nicotine dependence, cigarettes, uncomplicated
CPT/HCPCS: 99406; 99283; 36415; 87070; 87880; 87077; J3490